=== PATIENT | female | born 1950 | race Caucasian/White ===

== ENCOUNTER 2022-04-15 14:51 | Outpatient (CLI) | payer MEDICARE, OTHER, SELFPAY | END 2022-04-15 14:52 | disposition home or self-care (01) | PROVIDERS: PCP Family Medicine; Visit Provider Family Medicine | DX: M17.12 Unilateral primary osteoarthritis, left knee (principal); M25.562 Pain in left knee | CPT/HCPCS: 64454 ==

== ENCOUNTER 2022-05-13 12:30 | Outpatient (CLI) | payer MEDICARE, OTHER, SELFPAY | END 2022-05-13 12:31 | disposition home or self-care (01) | LOC: INJ CL 12:30 | PROVIDERS: PCP Family Medicine; Visit Provider Family Medicine | DX: M17.12 Unilateral primary osteoarthritis, left knee (principal); G89.29 Other chronic pain; M25.562 Pain in left knee | CPT/HCPCS: 64624; J2250; J3010 ==

== ENCOUNTER 2022-06-06 11:21 | Outpatient (CLI) | payer MEDICARE, OTHER, SELFPAY | END 2022-06-06 11:22 | disposition home or self-care (01) | PROVIDERS: PCP Family Medicine; Visit Provider Family Medicine | DX: M17.11 Unilateral primary osteoarthritis, right knee (principal); M25.561 Pain in right knee | CPT/HCPCS: 64454; J0702; J1100 ==

== ENCOUNTER 2022-06-17 13:16 | Outpatient (CLI) | payer MEDICARE, OTHER, SELFPAY | END 2022-06-17 13:17 | disposition home or self-care (01) | LOC: INJ CL 13:17 | PROVIDERS: PCP Family Medicine; Visit Provider Family Medicine | DX: M17.11 Unilateral primary osteoarthritis, right knee (principal); G89.29 Other chronic pain; M25.561 Pain in right knee | CPT/HCPCS: 20610; 64624; 77002; J2250; J3010; Q9966 ==

== ENCOUNTER 2023-01-05 14:20 | Outpatient (RCR) | payer MEDICARE, OTHER, SELFPAY ==
--- NOTE | 2023-01-05 17:02 | PT.OPEX ---
PT [place] Outpatient Eval PT [facility] Outpatient Eval Start: 01/05/23 13:41 Freq: Status: Active Protocol: Document 01/05/23 13:45 AMS (Rec: 01/05/23 16:58 AMS [id number]) E-signed By Marilin Myles PT Physical Therapy Outpatient Evaluation Insurance Information Recert Due Date 03/31/23 Insurance Name Medicare B Medical Diagnosis Left knee osteoarthritis, pre- op left TKA scheduled for 01/15 Treating Diagnosis Left knee pain Muscle weakness Aftercare following joint replacement Referring MD Dr. Monteiro Subjective Subjective Mariah is a new patient in my office today. She is a pleasant 72yr old female. Presents with pain in both knees. She reports medial pain , left greater than right. She has had symptoms for many years which have been progressive. She wanted to have knee replacement previously but has been treated for breast cancer, including chemotherapy which concluded in May. For knee pain she has tried cortisone injections, Visco injections, radiofrequency ablation, physical therapy, ice, ibuprofen and Tylenol. She has never had surgery on either knee. - Dr. Monteiro, , confirmed by patient Mariah reports to physical therapy for pre-op TKA appointment and use of single- point cane. She will be having the left knee replaced on and doing her post-op physical therapy closer to home in [place]. Lives in a single-story home with three stairs to enter by herself, but her son will be staying with her for 2 nights following the surgery. She will likely be having the right knee replaced after the left at some point. Does not own a FWW, but is able to get one. Reports pain with walking longer than half a block and none at rest. Reports that her cancer is remission, had follow up appointment in October. Pain Comments 0/10 at rest, 8/10 pain with activities Date of Last Physician Visit 12/10/22 Date of Surgery (If applicable) 01/15/23 Current Work Status Retired Precautions Treatment Precautions/Contraindications History of breast cancer in remission Weight Bearing Status Full Weight Bearing Therapy Limitations/Systems Review Not Limited Objective Other/Pertinent Objective Objective: Knee ROM L 0-2-120 R 0-5-120 Strength: Hip flexors: R 5/5 L 4/5 Knee extensors: R 5/5 L 5/5 Knee flexors: R 5/5 L 5/5 Gait/balance: Ambulates with single point cane in right hand to offload left LE, mildly decreased step length on right/antalgic gait noted Swelling/observation: swelling in bilateral calves/ankles noted (several months present, onset w/ chemotherapy) Assessment Assessment/Impression Patient is a 72 year old female presenting for pre- operative visit prior to left total knee arthroplasty scheduled for 01/15/23. She will be doing her post- operative physical therapy in [place] closer to home. Upon assessment, patient demonstrates decreased knee ROM, decreased proximal hip force output, impaired gait ( uses single-point cane), and antalgic gait pattern. These impairments lead to difficulties with walking longer than half a block, gardening, and performing any weightbearing activities without pain. Patient will be seen post operatively in [place] to reassess impairments that will be addressed with skilled care. Mariah would greatly benefit from skilled PT in order to progress strength, ROM, and ambulation post operatively in order to perform all household and work duties without significant difficulty or discomfort. Primary Functional Limitations walking longer than half a block, standing, sleeping, gardening Plan of Care Rehabilitation Potential Excellent Physical Therapy Goals ?Patient will be independent with HEP. MET ?Patient will verbalize knowledge of stair navigation and proper sequencing, MET ?Patient will have knowledge on home adaptations and use of assistive devices post operatively. MET ?Patient will have knowledge of edema management. MET Coordination/Communication With Referral Source Treatment Plan/Direct Interventions Gait Training,Joint Mobilization,Manual Therapy, Neuromuscular Re-ed,Self-Care/ Home Management,Therapeutic Activities,Therapeutic Exercises Frequency/Duration 1x pre-operatively Patient Will Be Discharged From Therapy Completion of LTG(s) Evaluation Billing Untimed Code Treatment Minutes 15 Complexity Low Certification Information Initial Certification Date 01/05/23 Ending Certification Date 03/31/23 Provider Signature Shows Agreement With POC & Medical Necessity Physician Signature & Date Requested Please Sign/Date Here Physician Comment/Change : Physician NPI Number #
== END 2023-05-05 23:59 | disposition home or self-care (01) ==
PROVIDERS: PCP Family Medicine; Visit Provider Orthopaedic Surgery
DX: M17.12 Unilateral primary osteoarthritis, left knee (principal); Z74.09 Other reduced mobility; Z51.89 Encounter for other specified aftercare
CPT/HCPCS: 97110; 97116; 97161

== ENCOUNTER 2023-01-15 08:13 | Day surgery (SDC) | payer MEDICARE, OTHER, SELFPAY ==
[2023-01-15] VITALS (22 sets, daily range): BP systolic 115–156; BP diastolic 58–98; PULSE 60–76; RESP 12–16; TEMP 35.5–36.6; O2SAT 90–98; BMI 32.9
[2023-01-15] MEDS: ACETAMINOPHEN 500 MG TABLET 1000 MG PO ×3 (08:55→21:57)
[2023-01-15] MEDS: CELECOXIB 200 MG CAPSULE PO (08:55)
[2023-01-15] MEDS: OXYCODONE (CR) 10 MG TAB.ER.12H PO (08:55)
[2023-01-15] MEDS: LACTATED RINGERS 1000 ML 1,000 ML 100 ML IV ×2 (09:12→12:45)
[2023-01-15] MEDS: MIDAZOLAM HCL 1 MG/ML inj IVP (10:36)
[2023-01-15] MEDS: fentaNYL 100 MCG/2 ML inj IVP (10:36)
--- NOTE | 2023-01-15 10:38 | SUR.PREOP ---
TIME?OUT:?1034 PT/RN/MDA?VERIFICATION?OF?SURGICAL?SITE,?PROCEDURE,?AND?CONSENT OBTAINED?PRIOR?TO?INVASIVE?PROCEDURE. all in agreement
[2023-01-15] MEDS: CEFAZOLIN 2 GM INJ IVP (11:17)
[2023-01-15] MEDS: TRANEXAMIC ACID 100 MG/ML INJ 1000 MG IV (11:25)
[2023-01-15] MEDS: methylPREDNISolone acetate 80 MG/ML INJ INTRA-ARTI (11:29)
[2023-01-15] MEDS: BUPIVACAINE 0.25% 30 ML INJECTION (11:29)
--- NOTE | 2023-01-15 11:52 | P.NB_ITS ---
Nerve Block Nerve Block Time Seen by Provider: 10:40 Date Seen: 01/15/23 Type of block requested by surgeon for post-operative analgesia: geniculars Side: left Time out performed: Yes Verification of patient name: Yes Verification of date of : Yes Site marking: site marked Name of person performing procedure: Elias Continuous monitoring Was continuous monitoring of O2 sat, B/P, monitor and storage bin tender, recorded every 15 minutes?: Yes Procedure Checklist: sterile prep, needles and gloves Medications given in 5ml increments after negative aspiration: Ropivicaine %: 0.5 mL: 9 Needle gauge: 25 Patient tolerated procedure well: Yes Block Charges Block Charge (with Pro Fee): Genicular Nerve Block Use of Ultrasound Machine for Block: No
--- NOTE | 2023-01-15 11:52 | W.PM.NB ---
Nerve Block Nerve Block Time Seen by Provider: 10:40 Date Seen: 01/15/23 Type of block requested by surgeon for post-operative analgesia: adductor canal Side: left Time out performed: Yes Verification of patient name: Yes Verification of date of : Yes Site marking: site marked Name of person performing procedure: Elias Continuous monitoring Was continuous monitoring of O2 sat, B/P, cardiac rehabilitation specialist, recorded every 15 minutes?: Yes Procedure Checklist: sterile prep, needles and gloves Ultrasound guided. Images saved: Yes Medications given in 5ml increments after negative aspiration: Ropivicaine %: 0.5 mL: 20 Needle gauge: 20 Decadron (mg): 10 Precedex (mcg): 25 Patient tolerated procedure well: Yes Additional comments: Needle noted adjacent to nerve Block Charges Block Charge (with Pro Fee): Femoral Nerve Use of Ultrasound Machine for Block: Yes- US Guidance/pain block
--- NOTE | 2023-01-15 11:52 | W.ANESCHARGE ---
Anesthesia Charges Start Date/Time Anesthesia Start Date: 01/15/23 Anesthesia Start Time: 11:17 Stop Date/Time Anesthesia Stop Date: 01/15/23 Anesthesia Stop Time: 13:43 Summary Extremes of Age - Over 70 or under 1: MDA
--- NOTE | 2023-01-15 12:38 | CRLHL7_ITS ---
For Patients: As a result of the Cures Act, medical imaging exams and procedure reports are released immediately into your electronic medical record. You may view this report before your referring provider. If you have questions, please contact your health care provider. Indication: POSTOP TKA Technique: Two views left knee Findings/Impression: Hardware from a left total knee arthroplasty is in satisfactory position. Bone alignment is normal. No sign of acute fracture. Postop changes are within normal limits. Dictated by Luis Alfredo Camacho MD @ 01/15/2023 3:34:49 PM (Electronically Signed)
--- NOTE | 2023-01-15 12:39 | PM.ORPRC ---
Procedure Note Date of procedure: 01/15/23 Procedure: PREOPERATIVE DIAGNOSIS: Left knee osteoarthritis POSTOPERATIVE DIAGNOSIS: Left knee osteoarthritis NAME OF OPERATION: Left total knee arthroplasty SURGEON: Collin Monteiro MD ROAD MACHINERY INSPECTOR: Geovanna Jamil PA-C ANESTHESIA: Spinal ESTIMATED BLOOD LOSS: 0 mL COMPLICATIONS: None SPECIMENS: None DRAINS: None PREOPERATIVE ANTIBIOTICS: Ancef 2 grams IMPLANTS: 1. J&J Attune # 4 posterior stabilized femur 2. # 3 fixed-bearing tibia 3. # 4 posterior stabilized, 5 mm fixed-bearing polyethylene 4. 35 patella INDICATIONS: The patient is a 72-year-old with a longstanding history of severe, unrelenting left knee pain secondary to end-stage (grade IV) left knee osteoarthritis. Despite appropriate nonoperative management, including activity modification, anti-inflammatories, [id number] pain medication, bracing, physical therapy, and injections they continue to have pain and disability. Operative intervention was offered. The risks, benefits and expected outcomes were discussed in detail. These included but were not limited to: Infection, bleeding, injury to blood vessel or nerve, venous thromboembolism. All questions were answered to their satisfaction. Use of an public services assistant was necessary throughout the case for patient positioning and safety, soft tissue retraction, and closure. PROCEDURE: Spinal anesthesia was administered. The patient was placed supine on the operating table. The public services assistant made sure the patient was positioned appropriately. The lower extremity was prepped and draped in the usual sterile fashion. The limb was exsanguinated with the Leandro bandage. The pneumatic tourniquet was inflated to 300 mmHg. A standard anterior incision was made with the knee in flexion. Subcutaneous dissection was sharply taken through fascial layer #1. Full-thickness medial and lateral flaps were elevated. The public services assistant retracted the soft tissues and protected them throughout the case. A standard medial parapatellar approach was made. The patella was everted. The infrapatellar fat pad was preserved. The menisci and cruciate ligaments were sharply d?brided. Marginal osteophytes were d?brided with the rongeur. The drill was used to penetrate the femoral canal. The canal was aspirated and irrigated with pulse lavage. The intramedullary femoral guide was placed for a 5-degree valgus cut, removing 10 mm off the distal femur. The saw was used to make the cut. Whitesides line and the trans epicondylar axis were marked. The femoral sizing guide was pinned onto the distal femur. Three degrees of external rotation nicely parallels the transepicondylar axis. Pins were placed for posterior referencing. The four-in-one cutting guide was pinned onto the distal femur. The anterior, posterior, and chamfer cuts were made. The public services assistant protected the collateral ligaments. The box cutting guide was pinned. The box cuts were made. The boxed trial was placed and was an excellent fit. Drill holes for the lugs were made. Attention was then turned to the proximal tibia. The extramedullary tibial guide was placed for a neutral varus/valgus cut with 5 degrees of posterior slope, removing 2 mm based off the medial tibial surface. The public services assistant protected the collateral ligaments and the neurovascular bundle. The saw was used to make the cut. Trial components were placed. The knee was nicely balanced in both flexion and extension. The trial components were removed. The tray was placed in appropriate rotation, parallel to our tibial cutting pins. It was pinned by the public services assistant and the drill and the punch were used. The tray was removed. The punch was used again. We placed a bone plug in the femoral canal. Attention was then turned to the patella. Jamul patellar thickness was 20 mm. The lobster claw resection guide was used with the 7.5 mm micah with the saw blade as an extra micah. The saw was used to make the cut. Drill holes were made by the public services assistant. The trial was placed and was an excellent fit. Cancellous surfaces were irrigated with pulse lavage and thoroughly dried by the public services assistant. We cemented the tibial component, then the femoral component. We impacted the 5 mm polyethylene onto the tibial tray. The knee was brought into full extension. We then cemented the patellar component. Excessive cement was removed. The cement was allowed to harden. The knee was taken through a range of motion and was found to be nicely balanced in both flexion and extension. The patella tracks centrally. The public services assistant did a three minute dilute Betadine solution soak. The public services assistant irrigated the wound with 3 liters of normal saline via pulse lavage. The public services assistant reapproximated the extensor mechanism with #1 Vicryl in an interrupted kqoxqq-kh-kquga fashion. The public services assistant then ran the extensor mechanism with a #1 PDO Stratafix. The public services assistant closed the subcutaneous tissues with a 3-0 Stratafix and the skin with a running 3-0 Stratafix in a subcuticular fashion. Glue was used to seal the skin. The public services assistant placed a dry dressing, BORIS stocking, and Polar Care. Sponge and needle counts were correct x2. The patient tolerated the procedure well. There were no apparent complications. They were carefully transferred to the hospital bed and taken to the postanesthesia care unit in satisfactory condition. PLAN: The patient will be mobilized with physical therapy. Aspirin will be used for DVT prophylaxis. They will be discharged to home once medically appropriate.
--- NOTE | 2023-01-15 13:43 | W.ANESCHARGE ---
Anesthesia Charges Start Date/Time Anesthesia Start Date: 01/15/23 Anesthesia Start Time: 11:17 Stop Date/Time Anesthesia Stop Date: 01/15/23 Anesthesia Stop Time: 13:43
--- NOTE | 2023-01-15 14:29 | SUR.PHASEI ---
patient met discharge criteria per anesthesia
[2023-01-15] MEDS: LACTATED RINGERS 1000 ML 1,000 ML 75 ML IV (14:41)
--- NOTE | 2023-01-15 15:59 | P.IMCN_ITS ---
Date of Consult Patient: Allison Patient Consult date: 01/15/23 Requesting Physician: Orthopedics Primary Care Provider: To Gibson MD Consult Narrative Reason for consult: Assist with medical management postoperatively Narrative: Mariah Julien is a 72 year old woman who underwent an elective left total knee arthroplasty today due to severe, symptomatic left gonarthrosis. Surgery successful without any apparent complications. Review of Systems Status of ROS: Reports: 6 or more systems reviewed and unremarkable except as noted in History and below Narrative: Denies angina, anginal equivalent, syncope, near syncope, cough, dyspnea at r est, paroxysmal nocturnal dyspnea, orthopnea, palpitations, fluttering, edema, claudication. Denies nausea or vomiting. Pain is well controlled at this time status post elective left total knee arthroplasty. Interested in eating. Tolerating Cornelius crackers at this time and clear liquids. Preoperatively bowel and bladder function are satisfactory. Does take oxybutynin for bladder function. Few months ago started cyanocobalamin and her hemoglobin has been steadily rising since then. [facility] Medical History (Updated 01/15/23 @ 16:12 by Baudilio Cid MD) Vitamin B12 deficiency anemia ?D51.9 - Vitamin B12 deficiency anemia, unspecified (ICD-10) Overactive bladder ?N32.81 - Overactive bladder (ICD-10) Hyperlipidemia ?E78.5 - Hyperlipidemia, unspecified (ICD-10) Major depressive disorder ?F32.9 - Major depressive disorder, single episode, unspecified (ICD-10) Peripheral neuropathy due to chemotherapy ?G62.0 - Drug-induced polyneuropathy (ICD-10) ?T45.1X5A - Adverse effect of antineoplastic and immunosuppressive drugs, initial encounter (ICD-10) History of pancytopenia ?Z86.2 - Personal history of diseases of the blood and blood-forming organs and certain disorders involving the immune mechanism (ICD-10) Hyperplastic colon polyp ?K63.5 - Polyp of colon (ICD-10) History of adenomatous polyp of colon ?Z86.010 - Personal history of colonic polyps (ICD-10) Breast cancer ?C50.919 - Malignant neoplasm of unspecified site of unspecified female breast (ICD-10) Surgical History (Updated 01/15/23 @ 16:10 by Baudilio Cid MD) Status post tonsillectomy ?Z90.89 - Acquired absence of other organs (ICD-10) History of colonoscopy ?Z98.890 - Other specified postprocedural states (ICD-10) History of lumpectomy of right breast (~03/2021) ?Z98.890 - Other specified postprocedural states (ICD-10) H/O hernia repair ?Z98.890 - Other specified postprocedural states (ICD-10) ?Z87.19 - Personal history of other diseases of the digestive system (ICD-10) Family History Sister Breast cancer Father Myocardial infarction Social History (Updated 01/15/23 @ 15:58 by Baudilio Cid MD) Narrative: Lives alone. 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 Never smoked. Was exposed to secondhand smoke from her ex-. Might drink 1 alcoholic beverage per week at the very most. Has 1 son, Royn, who lives in [place], [place], and home she designates as her power of mergers and acquisitions attorney for health should that be required. Has 1 granddaughter from her son, which granddaughter will be 2 years old in March of 2023. Enjoys spending time with her granddaughter. What is your current living situation?: I presently have a place to live In the past 12 months, utilities in danger of being shut off: no In the past 12 mos, have been you worried that your food would run out before you had money to buy more?: never true In the past 12 mos, the food you bought just didn't last and you didn't have money to buy more?: never true Smoking Status: Never smoker Do you use any of these nicotine containing products: None Second hand tobacco smoke exposure: No How often do you have a drink containing alcohol: 2-4 times a month Alcohol type: hard liquor How many standard drinks containing alcohol do you have on a typical day: 1 or 2 How often do you have six or more drinks on one occasion: Never AUDIT-C Alcohol total score: 2 Non-prescribed substance use: denies use Caffeine: Yes Are you now , , , , never or living with a partner: Social isolation score (0-1 are the most socially isolated patients): 0 How often does anyone, including family, friends and others, physically hurt you : never How often does anyone, including family, friends and others, insult or talk down to you: never How often does anyone, including family, friends and others, threaten you with harm: never How often does anyone, including family, friends and others, scream or curse at you: never service: No Meds Home Medications and Allergies Home Medications Medication Instructions Recorded Confirmed Type cyanocobalamin (vitamin B-12) 1,000 mcg PO DAILY 12/10/22 01/13/23 History 1,000 mcg tablet escitalopram oxalate 10 mg tablet 10 mg PO DAILY 12/10/22 01/15/23 History meloxicam 15 mg tablet 15 mg PO DAILY 12/10/22 01/15/23 History oxybutynin chloride 10 mg 10 mg PO DAILY 12/10/22 01/15/23 History tablet,extended release 24 hr simvastatin 40 mg tablet 40 mg PO HS 12/10/22 01/15/23 History aspirin 81 mg capsule 81 mg PO DAILY 01/15/23 01/15/23 History cholecalciferol (vitamin D3) 10 10 mcg PO DAILY 01/15/23 01/15/23 History mcg (400 unit) capsule multivitamin (Daily Multi-Vitamin 1 tab PO DAILY 01/15/23 01/15/23 History tablet) Allergies Allergy/AdvReac Type Severity Reaction Status Date / Time lisinopril AdvReac congestion Verified 12/10/22 09:23 in throat Exam Narrative: Exam Narrative: Examine her in her hospital room. Appears comfortable and in no acute distress. Vision and hearing are grossly normal. Alert, oriented to self, place, time, situation. Friendly, cooperative. Mood and affect are congruent. Cranial nerves 3-12 grossly normal. Dentition in good repair. Moist buccal mucosa. Mallampati class 2 airway. Neck is supple. Midline trachea. No JVD or hepatojugular reflux. No head and neck lymphadenopathy. Lungs are clear to auscultation without wheezing, rhonchi, or rales. Heart tones with regular rhythm, normal S1-S2. No obvious murmur, gallop, or rub. Abdomen with active bowel sounds, soft, nontender. Still numb in left lower extremity. Const: Vital Signs, click to edit/add: Vital Signs - 24 hr 01/15/23 09:12 01/15/23 10:34 01/15/23 10:43 Temperature 97.8 F Pulse Rate 76 75 72 Pulse Rate [Right Pulse Oximeter] Respiratory Rate 16 16 16 Blood Pressure 129/65 138/67 133/58 L Blood Pressure [Le ft Arm] Pulse Oximetry 97 95 94 Oxygen Delivery Me thod Room Air Nasal Cannula Nasal Cannula Oxygen Flow Rate 2 2 01/15/23 13:39 01/15/23 13:45 01/15/23 13:50 Temperature 97.3 F L 97.8 F 97.8 F Pulse Rate 71 74 71 Pulse Rate [Right Pulse Oximeter] Respiratory Rate 12 16 15 Blood Pressure 122/74 119/90 H 115/78 Blood Pressure [Le ft Arm] Pulse Oximetry 91 93 90 Oxygen Delivery Me thod Room Air Room Air Room Air Oxygen Flow Rate 01/15/23 13:55 01/15/23 14:00 01/15/23 14:05 Temperature 97.8 F 97.8 F 97.2 F L Pulse Rate 70 68 66 Pulse Rate [Right Pulse Oximeter] Respiratory Rate 14 14 15 Blood Pressure 117/72 122/81 119/77 Blood Pressure [Le ft Arm] Pulse Oximetry 92 92 93 Oxygen Delivery Me thod Room Air Nasal Cannula Nasal Cannula Oxygen Flow Rate 2 01/15/23 14:10 01/15/23 14:15 01/15/23 14:25 Temperature 97.2 F L 97.2 F L Pulse Rate 60 62 63 Pulse Rate [Right Pulse Oximeter] Respiratory Rate 14 15 16 Blood Pressure 124/77 125/75 Blood Pressure [Le ft Arm] 140/79 H Pulse Oximetry 96 94 Oxygen Delivery Me thod Nasal Cannula Room Air Oxygen Flow Rate 2 0 01/15/23 14:30 01/15/23 14:45 01/15/23 15:00 Temperature 95.9 F L Pulse Rate Pulse Rate [Right Pulse Oximeter] 68 61 69 Respiratory Rate 16 16 16 Blood Pressure Blood Pressure [Le ft Arm] 144/81 H 121/98 H 127/81 Pulse Oximetry 95 94 97 Oxygen Delivery Me thod Room Air Room Air Room Air Oxygen Flow Rate 01/15/23 15:00 01/15/23 15:36 Temperature 96.9 F L Pulse Rate Pulse Rate [Right Pulse Oximeter] 60 Respiratory Rate 16 Blood Pressure Blood Pressure [Le ft Arm] 129/73 Pulse Oximetry 98 98 Oxygen Delivery Me thod Room Air Oxygen Flow Rate Documenting provider has reviewed patient's vital signs: yes Assessment and Plan Assessment and plan (1) Osteoarthritis of left knee: Status: Acute (2) Status post total left knee replacement: Status: Acute (3) Vitamin B12 deficiency anemia: Problem comment: 11.5 on 01/02/2023 Status: Acute (4) Overactive bladder: Status: Acute (5) Hyperlipidemia: Status: Acute Plan 1. Reviewed impression with patient and her son, Rony. Answered their questions. 2. Hospitalist team will follow along with Orthopedic surgery while patient is in the hospital. 3. Agree with perioperative antibiotic prophylaxis. 4. Agree with postoperative venous thromboembolism prophylaxis. 5. Continue with her usual medications for her vitamin B12 deficiency anemia and overactive bladder. Similarly with regard to her hyperlipidemia. 6. Completed hospitalist discharge portion of patient discharge orders from the hospital.
[2023-01-15] MEDS: CEFAZOLIN 2 GM in 0.9 % SODIUM CHLORIDE Mini-bag 100 ML IVPB (17:39)
[2023-01-15] MEDS: OXYCODONE 5 MG TABLET PO (19:43)
[2023-01-15] MEDS: ASPIRIN 81 MG TABLET EC PO (21:56)
[2023-01-15] MEDS: SIMVASTATIN 40 MG TABLET PO (21:57)
--- NOTE | 2023-01-15 22:50 | PC.NURSE ---
End of Shift: Patient pleasant and cooperative. Afebrile. Dressing to left knee C/D/I. CMS intact. Up to BSC with 2 assist, walker and gait belt. Left leg occasionally buckling when ambulating. Tolerating regular diet with no nausea. Rating pain up to 2/10 and PRN Oxycodone given x1.
[2023-01-16 00:05] VITALS: BP 103/87; PULSE 83; RESP 16; TEMP 36.6; O2SAT 92
[2023-01-16] MEDS: CEFAZOLIN 2 GM in 0.9 % SODIUM CHLORIDE Mini-bag 100 ML IVPB (01:41)
[2023-01-16] MEDS: ACETAMINOPHEN 500 MG TABLET 1000 MG PO ×2 (03:18→10:33)
[2023-01-16 03:20] VITALS: BP 131/81; PULSE 72; RESP 16; TEMP 36.6; O2SAT 98
[2023-01-16 06:42] LABS: Hematocrit 32.4 % (33.0-51.0); Hemoglobin* 10.7 gm/dL (12.0-16.0); Immature Granulocytes Pct Auto 0.3 %; Mean Corpuscular HGB Conc 33 gm/dL (32-36); Mean Corpuscular Hemoglobin 30 pg (26-34); Mean Corpuscular Volume 91 fL (80-100); Monocytes Percent Auto 2.8 % (0.0-11.0); Neutrophils Percent Auto 89.9 % (42.0-72.0); Platelet Count* 265 K/uL (140-440); RDW Coefficient of Variation % 12.8 % (11.5-15.5); Red Blood Count 3.55 m/uL (4.00-5.20); Slide Review Reflex No; White Blood Count* 11.15 K/uL (4.50-11.00)
[2023-01-16 07:02] LABS: Potassium* 3.5 mmol/L (3.6-5.1); Sodium* 140 mmol/L (135-149)
[2023-01-16 07:05] LABS: Creatinine* 0.9 mg/dL (0.5-1.5); Est. Creatinine Clearance* 37.24; Estimated Glomerular Filt Rate 67 ml/min
[2023-01-16 07:06] LABS: Blood Urea Nitrogen* 30 mg/dL (7-30)
[2023-01-16 07:08] LABS: Prothrombin Time 14.9 Seconds
--- NOTE | 2023-01-16 07:59 | PC.NURSE ---
Pt alert and oriented x3. Afebrile. Pt reports 0-2/10 pain in left knee, managed with scheduled medication. Pt's dressing was CDI. Quantitative Associate noted left knee buckels when attempting to stand or walk, reported this to on coming nurse, pt has physical and occupational therapy is ordered in the morning. Pt is heavy A2 with walker and gait belt. Pt is voiding, tolerating regular diet, and slept throughout most of night.
[2023-01-16 08:03] VITALS: BP 144/112; PULSE 70; RESP 16; TEMP 36.4; O2SAT 96
[2023-01-16] MEDS: SENNOSIDES 1 TAB TABLET 2 TAB PO (08:56)
[2023-01-16] MEDS: oxyBUTYnin chloride 5 MG TAB.ER.24 10 MG PO (08:57)
[2023-01-16] MEDS: ESCITALOPRAM 10 MG TABLET PO (08:57)
[2023-01-16] MEDS: ASPIRIN 81 MG TABLET EC PO (08:57)
[2023-01-16] MEDS: CYANOCOBALAMIN (VITAMIN B-12) 500 MCG TABLET 1000 MCG PO (08:57)
--- NOTE | 2023-01-16 09:10 | PM.ORPN ---
Subjective Subjective Time Seen by Provider: 07:15 Date Seen: 01/16/23 Principal diagnosis: Status post left knee replacement 01/15/2023 Interval history: Mariah has no pain. She states her knee has been buckling when she gets up to the commode. She last got out of bed at 5:30 a.m. this morning. Ortho Exam Narrative Exam Narrative: Alert and oriented x3. Patient is in no acute distress. Converses without labored breathing. Hearing is grossly intact. Ambulates with a walker and has had buckling of the operative leg. Examination of the left lower extremity shows minimal effusion. Minimal soft tissue edema about the left knee. CMS is intact. No foot drop. Good pedal pulses 2+. Easily able to straight leg raise. Can flex and extend the knee in the bed. Also with testing quad strength, her quads activate, easily able to push her knee into the bed with clenching her quad. No erythema or sign of infection in this knee. Bilateral calves are soft and nontender. Const Vital Signs, click to edit/add: Vital Signs - 24 hr 01/15/23 09:12 01/15/23 10:34 01/15/23 10:43 Temperature 97.8 F Pulse Rate 76 75 72 Pulse Rate [Left Dorsalis Pedis] Pulse Rate [Right Pulse Oximeter] Respiratory Rate 16 16 16 Blood Pressure 129/65 138/67 133/58 L Blood Pressure [Left Arm] Pulse Oximetry 97 95 94 Oxygen Delivery Method Room Air Nasal Cannula Nasal Cannula Oxygen Flow Rate 2 2 01/15/23 13:39 01/15/23 13:45 01/15/23 13:50 Temperature 97.3 F L 97.8 F 97.8 F Pulse Rate 71 74 71 Pulse Rate [Left Dorsalis Pedis] Pulse Rate [Right Pulse Oximeter] Respiratory Rate 12 16 15 Blood Pressure 122/74 119/90 H 115/78 Blood Pressure [Left Arm] Pulse Oximetry 91 93 90 Oxygen Delivery Method Room Air Room Air Room Air Oxygen Flow Rate 01/15/23 13:55 01/15/23 14:00 01/15/23 14:05 Temperature 97.8 F 97.8 F 97.2 F L Pulse Rate 70 68 66 Pulse Rate [Left Dorsalis Pedis] Pulse Rate [Right Pulse Oximeter] Respiratory Rate 14 14 15 Blood Pressure 117/72 122/81 119/77 Blood Pressure [Left Arm] Pulse Oximetry 92 92 93 Oxygen Delivery Method Room Air Nasal Cannula Nasal Cannula Oxygen Flow Rate 2 01/15/23 14:10 01/15/23 14:15 01/15/23 14:25 Temperature 97.2 F L 97.2 F L Pulse Rate 60 62 63 Pulse Rate [Left Dorsalis Pedis] Pulse Rate [Right Pulse Oximeter] Respiratory Rate 14 15 16 Blood Pressure 124/77 125/75 Blood Pressure [Left Arm] 140/79 H Pulse Oximetry 96 94 Oxygen Delivery Method Nasal Cannula Room Air Oxygen Flow Rate 2 0 01/15/23 14:30 01/15/23 14:45 01/15/23 15:00 Temperature 95.9 F L Pulse Rate Pulse Rate [Left Dorsalis Pedis] Pulse Rate [Right Pulse Oximeter] 68 61 69 Respiratory Rate 16 16 16 Blood Pressure Blood Pressure [Left Arm] 144/81 H 121/98 H 127/81 Pulse Oximetry 95 94 97 Oxygen Delivery Method Room Air Room Air Room Air Oxygen Flow Rate 01/15/23 15:00 01/15/23 15:15 01/15/23 15:45 Temperature 96.9 F L Pulse Rate Pulse Rate [Left Dorsalis Pedis] Pulse Rate [Right Pulse Oximeter] 60 64 Respiratory Rate 16 16 Blood Pressure Blood Pressure [Left Arm] 129/73 126/80 Pulse Oximetry 98 98 95 Oxygen Delivery Method Room Air Room Air Oxygen Flow Rate 0 01/15/23 16:15 01/15/23 17:15 01/15/23 18:15 Temperature 96.6 F L Pulse Rate Pulse Rate [Left Dorsalis Pedis] Pulse Rate [Right Pulse Oximeter] 66 66 70 Respiratory Rate 16 16 16 Blood Pressure Blood Pressure [Left Arm] 156/81 H 142/74 H 145/75 H Pulse Oximetry 95 96 95 Oxygen Delivery Method Room Air Room Air Room Air Oxygen Flow Rate 0 0 0 01/15/23 19:15 01/15/23 20:15 01/16/23 00:05 Temperature 97.6 F Pulse Rate Pulse Rate [Left Dorsalis Pedis] Pulse Rate [Right Pulse Oximeter] 71 72 Respiratory Rate 16 16 Blood Pressure Blood Pressure [Left Arm] 137/70 143/70 H Pulse Oximetry 94 94 92 Oxygen Delivery Method Room Air Room Air Oxygen Flow Rate 0 0 01/16/23 00:05 01/16/23 00:05 01/16/23 03:20 Temperature 97.8 F 97.9 F Pulse Rate Pulse Rate [Left Dorsalis Pedis] 83 72 Pulse Rate [Right Pulse Oximeter] 83 72 Respiratory Rate 16 16 16 Blood Pressure Blood Pressure [Left Arm] 103/87 131/81 Pulse Oximetry 92 98 Oxygen Delivery Method Room Air Room Air Oxygen Flow Rate 0 01/16/23 08:03 Temperature 97.6 F Pulse Rate Pulse Rate [Left Dorsalis Pedis] Pulse Rate [Right Pulse Oximeter] 70 Respiratory Rate 16 Blood Pressure Blood Pressure [Left Arm] 144/112 H Pulse Oximetry 96 Oxygen Delivery Method Room Air Oxygen Flow Rate Assessment and Plan Assessment and plan (1) Status post total left knee replacement: Problem details: 01/15/2023 Status: Acute Assessment and Plan: I have spoken with physical therapy this morning to discuss Mariah's symptoms. We discussed that she may need a knee immobilizer for therapy. She may need to stay for 2nd physical therapy session today before she can go home. Physical therapy will assess her. Physical exam of the left lower extremity in her bed shows quad activation, no foot drop. Plan for discharge is today to home if they meet discharge criteria. DVT prophylaxis includes aspirin 81 mg twice daily x1 month, Jacob stockings x1 month may remove for 1 hr per day, frequent ambulation Remove dressing in 1 week. Observe wound and phone Orthopedics with any questions or concerns Return to clinic in 1 week for a wound check Return to clinic in 6 weeks with surgeon Minimize narcotic use. Wean off and discontinue soon as possible. Activities as tolerated. No strenuous activity. Outpatient physical therapy as scheduled. Ice and elevate the operative extremity. No restriction on ice. (2) Vitamin B12 deficiency anemia: Problem details: 11.5 on 01/02/2023 Status: Acute (3) Overactive bladder: Status: Acute (4) Hyperlipidemia: Status: Acute
[2023-01-16 09:35] VITALS: O2SAT 96
--- NOTE | 2023-01-16 14:17 | PC.NURSE ---
Discharge note- post LTKA- dressing is CDI, Ax1 w/ gait belt and RW. Son at bedside during discharge teaching. Discharged @1420 via wheelchair. All discharge instructions were reviewed. Follow up appoinment is booked.
== END 2023-01-16 14:20 | disposition home or self-care (01) ==
LOC: OR 08:14 → MEDSURG 08:16
PROVIDERS: PCP Family Medicine; Visit Provider Orthopaedic Surgery
PROC: (CPT 27447; principal; 2023-01-15 10:15)
PROC: (CPT 27447; 2023-01-15 10:15)
DX: M17.12 Unilateral primary osteoarthritis, left knee (principal); G89.18 Other acute postprocedural pain; D51.9 Vitamin B12 deficiency anemia, unspecified; N32.81 Overactive bladder; E78.5 Hyperlipidemia, unspecified
CPT/HCPCS: 27447; 01402; 36415; 64447; 64454; 73560; 76942; 82565; 84132; 84295; 84520; 85025; 85610; 97110; 97116; 97161; 97165; 97530; 97535; 99100; A9270; C1776; J0665; J0690; J1040; J1100; J2250; J2704; J2795; J3010; J7120

== ENCOUNTER 2023-12-08 06:57 | Day surgery (SDC) | payer MEDICARE, OTHER, SELFPAY ==
[2023-12-08] VITALS (24 sets, daily range): BP systolic 98–153; BP diastolic 47–103; PULSE 69–91; RESP 12–18; TEMP 36–36.8; O2SAT 92–98; BMI 34.9
--- OUTSIDE RECORDS SUMMARY | 2023-12-08 06:59 | XMS_ITS | Clinical Summary ---
Author Organization [email or web address] [facility] Address [place], [place] [address] Care Team Providers Care Boom Worker Name Role Phone To Gibson MD Primary Care Provider [phone] Kash Funk RN Unavailable Unavailable Yokasta Staley MD Unavailable [phone] Zulema Correia MANAGER ANIMATION Unavailable Allergies Active Allergy Reactions Criticality Noted Date Comments Lisinopril-Hydrochlorothiazide Cough Low 07/27 Clearing throat Medications Medication Sig Dispensed Refills Start Date End Date Status multivitamin (Daily Multi-Vitamin) tablet Take 1 Tablet by mouth once daily. 0 08/14/2022 Active Cholecalciferol, Vitamin D3, (Vitamin D-3) 400 unit capsule Take by mouth once daily. 0 08/14/2022 Active aspirin chewable 81 mg chewable tablet Chew 1 Tablet (81 mg) by mouth once daily with a meal. 0 01/02/2023 Active Senna 8.6 mg tablet TAKE 2 TABLETS BY MOUTH TWICE DAILY NEEDED FOR CONSTIPATION 01/15/2023 Active acetaminophen (TYLENOL EXTRA STRGTH) 500 mg tablet 01/15/2023 Active cyanocobalamin (VITAMIN B12) 1,000 mcg tabletIndications:An emia, unspecified type TAKE 1 TABLET BY MOUTH DAILY 30 Tablet 5 06/11/2023 Active escitalopram oxalate (LEXAPRO) 10 mg tabletIndications:De pression, major, single episode, moderate (HC) Take 1 Tablet (10 mg) by mouth every morning. 90 Tablet 08/18/2023 Active oxybutynin XL (DITROPAN XL) 10 mg CR tabletIndications:Ov eractive bladder Take 1 Tablet (10 mg) by mouth once daily. 90 Tablet 08/18/2023 Active simvastatin (ZOCOR) 40 mg tabletIndications:Hy perlipidemia, unspecified hyperlipidemia type Take 1 Tablet (40 mg) by mouth at bedtime. 90 Tablet 08/18/2023 Active meloxicam 15 mg tabletIndications:Ch ronic pain of right knee Take 1 Tablet (15 mg) by mouth once daily. 30 Tablet 5 08/18/2023 Active benzonatate (TESSALON) 200 mg capsuleIndications:C ough, unspecified type Take 1 Capsule (200 mg) by mouth 3 times daily if needed for Cough. 21 Capsule 09/24/2023 Active Active Problems Problem Noted Date Diagnosed Date Pancytopenia 07/04/2022 Peripheral neuropathy due to chemotherapy 2022 Depression, major, single episode, moderate 06/18 Arthritis of right knee 04/23/2021 Arthritis of left knee 04/23/2021 Primary osteoarthritis of both knees 01/10/2021 Colon polyp, hyperplastic 06/24/2014 Other and Unspecified Hyperlipidemia 04/20/2008 Personal history of colonic polyps Malignant neoplasm of right breast in female, estrogen receptor negative Cancer Staging:Pathologic:Stage IIA(pT2, pN0, cM0, G3, ER-, CT-, HER2+) - Signed by Yokasta Staley MD on 05/15/2021 Resolved Problems Problem Noted Date Diagnosed Date Resolved Date HTN (hypertension) 07/27/2009 2 HTN (hypertension) 04/20/2008 0 Overview: Updated by system to replace inactive record Encounters Date Type Department Care Team Description 11/24/2023 10:50 AM CDT Office Visit [facility] [address] [place] [address] To Gibson MD Pre-Op Exam (Right knee replacement) 11/24/2023 Travel 10/29/2023 Telephone [facility] [address] [place] [address] Zulema Correia, MANAGER ANIMATION Appointment 10/28/2023 11:15 AM CDT Office Visit [facility] [address] [place] [address] Zulema Correia, MANAGER ANIMATION Follow Up (Malignant neoplasm of right breast in female, estrogen receptor negative, unspecified site of breast (HC)//) 10/28/2023 Travel 10/23/2023 11:12 AM CDT - 10/23/2023 11:59 PM CDT Hospital Encounter [facility] [address] [facility] [place] [address] Anemia, unspecified type; HER2-positive carcinoma of right breast (HC) 10/23/2023 Travel 09/24/2023 12:25 PM CDT Office Visit [facility] [address] [facility] [place] [facility] [place] [address] Shu Bentley, HERMAN Cough (Excessive cough causing rib pain x 4 days. Chest soreness has improved some. Cough is productive) 09/24/2023 Travel 09/22/2023 Telephone [facility] [address] [facility] [place] [address] Zulema Correia, MANAGER ANIMATION Appointment from Last 3 Months Immunizations Name Administration Dates Next Due AMB Influenza, IIV3 (Age >=3 years)(Flu Clinic Only) 04/28/2012,02/20/2009,04/05/2008 COVID-19 Vaccine Spikevax (M oderna 50mcg/0.5mL) 12YO+ [id number] Formula PF 05/07/2023 COVID-19 vaccine ([place]-Bio NTech 30mcg/0.3mL) 12YO+ BIVALENT PF, MDV 04/18/2022 COVID-19 vaccine ([place]-Bio NTech 30mcg/0.3mL) PF, MDV 03/04/2021,08/11/2020,07/21/2020 Influenza, IIV3 (Age >=3 years) 05/06/20 13,03/07/2011,04/26/2010,2006 Influenza, IIV4 05/12/2014 Influenza, Inactivated AIIV4 (Age 65+ Years) Preserv Free 05/07/2023,02/25/2022,03/04/2021,2019 Influenza, Inactivated IIV3 (Age 65+ Years) Preserv Free 05/24/2019 Pneumococcal Poly,23-Valent (Pneumovax) 04/05/2021 Pneumococcal conj 13-Valent (Prevnar 13) 02/08/2020 Td (Age >=7 Years) 11/16/2007 Tdap 03/04/2021 Tuberculin (PPD) 06/24/2016, 4,07/06/2012,2011,07/23/2010,09/17/2009,09/12/2008,0 08/04/2007,08/05/2006 Zoster (Shingrix-RZV, recombinant) 06/04/2020, Family History Medical History Relation Name Comments Heart Disease Father [place] Cancer-breast Sister Relation Name Status Comments Father Sister Social History Tobacco Use Types Packs/Day Years Used Date Smoking Tobacco: Never Passive Smoke Exposure: Yes Smokeless Tobacco: Never Tobacco Cessation:Counseling Given: Not Answered Passive Exposure Comments:ex- smoked in home Alcohol Use Standard Drinks/Week Comments Yes 1 (1 standard drink = 0.6 oz pure alcohol) occasionally wine, beer or liquor PHQ-2 Answer Date Recorded PHQ-2 TOTAL SCORE 0 08/18/2023 Social Connections Answer Date Recorded Frequency of Communication with Friends and Fami ly 0 09/24/2023 Financial Resource Strain Answer Date R ecorded Difficulty of Paying Living Expenses 3 09/24/2023 Difficulty of Paying Living Expenses Not on file 09/24/2023 Food Insecurity Answer Date Recorded Worried About Running Out of Food in the Last Ye ar 1 09/24/2023 Transportation Needs Answer Date Record ed Lack of Transportation (Medical) 1 09/24/2023 Housing Stability Answer Date Recorded Unable to Pay for Housing in the Last Year 1 09/24/2023 Sex and Gender Information Value Date Recorded Sex Assigned at Not on file Gender Identity Not on file Sexual Orientation Not on file Obstetrics History Last Filed Vital Signs Vital Sign Reading Time Taken Comments Blood Pressure 118/68 11/24/2023 11:08 AM CDT Pulse 86 11/24/2023 11:08 AM CDT Temperature 37.1 ??C (98.7 ??F) 10/28/2023 1 1:07 AM CDT Respiratory Rate 18 10/28/2023 11:0 7 AM CDT Oxygen Saturation 97% 11/24/2023 11: 08 AM CDT Inhaled Oxygen Concentration - - Weight 83.8 kg (184 lb 11.2 oz) 024 11:08 AM CDT Height 154.9 cm (5' 1) 11/24/2023 11:0 8 AM CDT Body Mass Index 34.9 11/24/2023 11:08 AM CDT Plan of Treatment Upcoming Encounters Date Type Department Care Team (Late st Contact Info) Description 04/07/2024 11:20 AM TITLE CAMERA OPERATOR Appointment [facility] [address] [place] [address] 04/13/2024 11:15 AM TITLE CAMERA OPERATOR Appointment [facility] [address] [place] [address] 04/18/2024 11:30 AM TITLE CAMERA OPERATOR Office Visit [facility] [address] [place] [address] Yokasta Staley MD [address] [place] [address] Health Maintenance Due Date Last Done Comments COVID-19 vaccine series ( season) 2023 05/07/2023, 04/18/2022, 03/04/2021, Additional history exists Influenza for age 65+ 01/17/2024 05/07/2023 , 02/25/2022, 03/04/2021, Additional history exists Depression screening for age 12+ 08/17/2024 08/18/2023, 09/02/2022, 04/18/2022, Additional history exists Medicare Wellness for age 65+ 08/18/2024, 04/18/2022, 03/04/2021, Additional history exists BMI (ht and wt on same day) for age 18+ 11/23/2024 11/24/2023, 08/18/2023, 01/02/2023, Additional history exists Colonoscopy through age 75 03/25/202603/25, 03/20/2016, 03/20/2016, Additional history exists Lipids for age 45-75 08/17/2028 08/18/2023, 04/18/2022, 03/04/2021, Additional history exists Tetanus booster 03/04/2031 03/04/2021, 11/16/2007 Hepatitis C screening for ag e 18-79 Completed 05/12/2014 DEXA/DXA scan for age 65+ Completed 04/13/2018 Zoster (shingles) series for age 50+ Completed 06/04/2020, 04/05/2020 Tdap Completed 03/04/2021 Pneumococcal series for age 65+ Completed , 02/08/2020 Medical Devices Implanted Type Area Hydraulic Spinner Device Identifier Shelf Expiration Date Model / Serial / Lot Power Port Isp Mri 6fr [id number] - [id number] Implanted:Qty: 1 on 04/30/2021 by Jamie Parrish MD at [facility] Left: Chest [employer] 07/15/2022 [id number] / / [id number] Procedures Procedure Name Priority Date/Time Associated Diagnosis Comments CBC WITH AUTO DIFFERENTIAL Routine 11/24/2023 11:27 AM CDT Preop examination Chronic pain of right knee BASIC METABOLIC PANEL Routine 11/24/2023 11:27 AM CDT Preop examination Chronic pain of right knee CBC WITH AUTO DIFFERENTIAL Routine 11/24/2023 11:27 AM CDT Preop examination Chronic pain of right knee CBC WITH AUTO DIFFERENTIAL Timed 10/23/2023 11:19 AM CDT Anemia, unspecified type HER2-positive carcinoma of right breast (HC) RETICULOCYTES Today 10/23/2023 11:19 AM CDT Anemia, unspecified type HER2-positive carcinoma of right breast (HC) COMP METABOLIC PANEL Today 10/23/2023 11:19 AM CDT Anemia, unspecified type HER2-positive carcinoma of right breast (HC) CBC WITH AUTO DIFFERENTIAL Today 10/23/2023 11:19 AM CDT Anemia, unspecified type HER2-positive carcinoma of right breast (HC) COVID-19 MOLECULAR Routine 09/24/2023 1: 26 PM CDT Cough, unspecified type INFLUENZA A/B PCR Routine 09/24/2023 1:2 6 PM CDT Cough, unspecified type LIPID PANEL W REFLEX MEASURED LDL Routine 08/18/2023 11:43 AM CDT Hyperlipidemia, unspecified hyperlipidemia type COLONOSCOPY 03/25/2021 10:28 AM TITLE CAMERA OPERATOR XR DXA BONE DENSITY 2 SITES AXIAL Routine 04/13/2018 1:02 PM TITLE CAMERA OPERATOR Routine adult health maintenance ANTI HCV Routine 05/12/2014 10:11 AM TITLE CAMERA OPERATOR Well adult exam from Last 3 Months or Most Recently Relevant to Health Maintenance Results * CBC WITH AUTO DIFFERENTIAL (11/24/2023 11:27 AM CDT) Only the most recent of2 resultswithin the time period is included. WHITE BLOOD COUNT 6.9 4.5 - 11.0 thou/cu mm 11/24/2023 12:[address] [facility] RED BLOOD COUNT 4.08 4.00 - 5.20 mil/cu mm 11/24/2023 12:[address] [facility] HEMOGLOBIN 12.3 12.0 - 16.0 g/dL 11/24/2023 12:[address] [facility] HEMATOCRIT 37.3 33.0 - 51.0 % 11/24/2023 12:[address] [facility] MCV 91 80 - 100 fL 11/24/2023 12:[address] [facility] MCH 30.1 26.0 - 34.0 pg 11/24/2023 12:[address] [facility] MCHC 33.0 32.0 - 36.0 g/dL 11/24/2023 12:[address] [facility] RDW 13.4 11.5 - 15.5 % 11/24/2023 12:[address] [facility] PLATELET COUNT 315 140 - 440 thou/cu mm 11/24/2023 12:[address] [facility] MPV 10.0 6.5 - 11.0 fL 11/24/2023 12:[address] [facility] % NEUT 51.6 % 11/24/2023 12:[address] [facility] % LYMPH 34.4 % 11/24/2023 12:[address] [facility] % MONO 9.8 % 11/24/2023 12:[address] [facility] % EOS 3.6 % 11/24/2023 12:[address] [facility] % BASO 0.6 % 11/24/2023 12:[address] [facility] ABSOLUTE NEUTROPHILS 3.6 1.7 - 7.0 thou/cu mm 11/24/2023 12:[address] [facility] ABSOLUTE LYMPHOCYTES 2.4 0.9 - 2.9 thou/cu mm 11/24/2023 12:[address] [facility] ABSOLUTE MONOCYTES 0.7 <0.9 thou/cu mm 11/24/2023 12:[address] [facility] ABSOLUTE EOSINOPHILS 0.3 <0.5 thou/cu mm 11/24/2023 12:[address] [facility] ABSOLUTE BASOPHILS 0.0 <0.3 thou/cu mm 11/24/2023 12:[address] [facility] Blood BLOOD SPECIMEN / Unknown Venipuncture / Unknown 11/24/2023 11:27 AM CDT 11/24/2023 11:28 AM T To Gibson MD HEMATOLOGY [facility] [address] [place] [address] * (ABNORMAL) BASIC METABOLIC PANEL (11/24/2023 11:27 AM CDT) SODIUM 140 136 - 145 mmol/L 11/24/2023 12:[address] [facility] POTASSIUM 3.9 3.5 - 5.1 mmol/L 11/24/2023 12:[address] [facility] CHLORIDE 102 98 - 107 mmol/L 11/24/2023 12:[address] [facility] CO2,TOTAL 29 22 - 29 mmol/L 11/24/2023 12:[address] [facility] ANION GAP 9 5 - 18 11/24/2023 12:[address] [facility] GLUCOSE 105(H) 70 - 99 mg/dL 11/24/2023 12:[address] [facility] CALCIUM 9.6 8.8 - 10.2 mg/dL 11/24/2023 12:[address] [facility] BUN 28(H) 8 - 23 mg/dL 11/24/2023 12:[address] [facility] CREATININE 1.06(H) 0.50 - 0.90 mg/dL 11/24/2023 12:[address] [facility] BUN/CREAT RATIO 26(H) 10 - 20 12:[address] [facility] eGFR 55(L) >90 mL/min/1.7 3m2 11/24/2023 12:[address] [facility] Comment:As of 2021, eG FR is calculated by the CKD-EPI creatinine equation without race adjustment. ??eGFR can be influenced by muscle mass, exercise, and diet. ??The reported eGFR is an estimation only and is only applicable if the renal function is stable. Blood BLOOD SPECIMEN / Unknown Venipuncture / Unknown 11/24/2023 11:27 AM CDT 11/24/2023 11:28 AM CDT To Gibson MD CHEMISTRY [facility] [address] [place] [address] * (ABNORMAL) RETICULOCYTES (10/23/2023 11:19 AM CDT) RETIC% 2.3(H) 0.5 - 1.5 % 10/23/2023 10:00 PM T [facility] RETIC (ABSOLUTE) 0.09(H) 0.03 - 0.08 mil/cu mm 10/23/2023 10:00 PM T [facility] Blood BLOOD SPECIMEN / Unknown Venipuncture / Unknown 10/23/2023 11:19 AM CDT 10/23/2023 11:19 AM CDT Narrative [facility] - 10/23/2023 10:00 PM CDT This procedure was originally ordered at [facility]. Yokasta Staley MD HEMATOLOGY [facility] [address] [place] [address], * (ABNORMAL) COMP METABOLIC PANEL (10/23/2023 11:19 AM CDT) SODIUM 140 136 - 145 mmol/L 10/23/2023 11:[address] [facility] POTASSIUM 4.1 3.5 - 5.1 mmol/L 10/23/2023 11:[address] [facility] CHLORIDE 103 98 - 107 mmol/L 10/23/2023 11:[address] [facility] CO2,TOTAL 26 22 - 29 mmol/L 10/23/2023 11:[address] [facility] ANION GAP 11 5 - 18 10/23/2023 11:[address] [facility] GLUCOSE 103(H) 70 - 99 mg/dL 10/23/2023 11:[address] [facility] CALCIUM 9.6 8.8 - 10.2 mg/dL 10/23/2023 11:[address] [facility] BUN 33(H) 8 - 23 mg/dL 10/23/2023 11:[address] [facility] CREATININE 1.02(H) 0.50 - 0.90 mg/dL 10/23/2023 11:39 AM T [facility] BUN/CREAT RATIO 32(H) 10 - 20 11:[address] [facility] eGFR 57(L) >90 mL/min/1.7 3m2 10/23/2023 11:[address] [facility] Comment:As of 2021, eG FR is calculated by the CKD-EPI creatinine equation without race adjustment. ??eGFR can be influenced by muscle mass, exercise, and diet. ??The reported eGFR is an estimation only and is only applicable if the renal function is stable. ALBUMIN 4.2 4.0 - 4.9 g/dL 10/23/2023 11:[address] [facility] PROTEIN,TOTAL 7.0 6.0 - 8.0 g/dL 10/23/2023 11:[address] [facility] BILIRUBIN,TOTAL 0.5 0.0 - 1.2 mg/dL 10/23/2023 11:[address] [facility] ALK PHOSPHATASE 77 35 - 104 IU/L 10/23/2023 11:[address] [facility] ALT (SGPT) 19 10 - 35 IU/L 10/23/2023 11:[address] [facility] AST (SGOT) 22 10 - 35 IU/L 10/23/2023 11:[address] [facility] Blood BLOOD SPECIMEN / Unknown Venipuncture / Unknown 10/23/2023 11:19 AM CDT 10/23/2023 11:19 AM CDT Yokasta Staley MD CHEMISTRY [facility] [address] [place] [id number] * COVID-19 MOLECULAR (09/24/2023 1:26 PM CDT) [facility] Negative Negative 09/25/2023 1:02 AM CDT [facility] 09/25/2023 1:02 AM CDT [facility] Comment:Specimen submitted t o [facility] for testing. Other SPECIMEN FROM NASAL FOSSAE / Unknown Non-Blood / Unknown 09/24/2023 1:26 PM CDT 09/24/2023 1:26 PM CDT Narrative [facility] - 09/25/2023 1:02 AM CDT All PCR tests are subject to false negative result due to variability in viral load and collection technique. A negative result does not rule out a SARS-CoV-2 infection. Clinical correlation required. Laura العلي NP MICROBIOLOGY [facility] [address] * INFLUENZA A/B PCR (09/24/2023 1:26 PM CDT) INFLUENZA A PCR Negative 09/25/2023 1:02 AM CDT [facility] INFLUENZA B PCR Negative 09/25/2023 1:02 AM CDT [facility] Other SPECIMEN FROM NASAL FOSSAE / Unknown Non-Blood / Unknown 09/24/2023 1:26 PM CDT 09/24/2023 1:26 PM CDT Laura العلي NP MICROBIOLOGY [facility] [address] [place] [address], * (ABNORMAL) LIPID PANEL W REFLEX MEASURED LDL (08/18/2023 11:43 AM CDT) CHOLESTEROL,TOTAL 266(H) 100 - 199 mg/dL 08/18/2023 12:33 PM CDT [facility] Comment: Cholesterol, Total Reference Ranges Desirable <200 mg/dL Borderline 200-239 mg/dL High >=240 mg/dL TRIGLYCERIDES 129 <150 mg/dL 08/18/2023 12:33 PM CDT [facility] HDL CHOLESTEROL 54 >40 mg/dL 12:33 PM CDT [facility] NON-HDL CHOLESTEROL 212(H) <145 mg/dl 08/18/2023 12:33 PM T [facility] CHOL/HDL RATIO 4.93(H) <4.50 08/18/2023 12:33 PM CDT [facility] LDL CHOLESTEROL 186(H) <=130 mg/dL 08/18/2023 12:33 PM T [facility] VLDL CHOLESTEROL 26 <=30 mg/dL 08/18/2023 12:33 PM T [facility] PROVIDER ORDERED STATUS RANDOM 08/18/2023 12:33 PM T [facility] Blood BLOOD SPECIMEN / Unknown Venipuncture / Unknown 08/18/2023 11:43 AM CDT 08/18/2023 11:43 AM CDT To Gibson MD CHEMISTRY Performing Organization Address City/State/[facility] Co de Phone Number [facility] [address] [place] [address] * COLONOSCOPY (03/25/2021 10:28 AM TITLE CAMERA OPERATOR) 03/25/2021 10:2 8 AM TITLE CAMERA OPERATOR Narrative Transcriptions Jamie Parrish MD - 03/25/2021 11:51 AM CST Patient Name: Mariah Sanford Procedure Date: 03/25/2021 Gender: Female Date of : 1950 Admit Type: Ambulatory Procedure: Colonoscopy Proceduralist: Jamie Parrish [facility] Indications/Pre-Op Diagnosis: High risk colon cancer surveillance:Personal history of colonic polyps Medications: Midazolam 4 mg IV, Fentanyl 100 microgramsIV Procedure Description: The patient had risks, benefits and alternatives explained to andgave informed consent. The patient had a stable cardiopulmonary status and judged an adequate candidate for conscious sedation. The colonoscope was passed through the anus and advanced to 4 cm into the ileum. The colonoscopy was performed without difficulty. Thepatient tolerated the procedure well. The quality of the bowel preparationwas good. The terminal ileum, ileocecal valve, appendiceal orifice, and rectum were photographed. Complications: No immediate complications. Estimated Blood Loss & Specimen: Estimated blood loss: none. Specimen collected - None Findings: The perianal and digital rectal examinations were normal. Scattered medium-mouthed diverticula were found in the sigmoidcolon. The terminal ileum appeared normal. The retroflexed view of the distal rectum and anal verge was normaland showed no anal or rectal abnormalities. Impressions/Post-Op Diagnosis: - Diverticulosis in the sigmoid colon. - The examined portion of the ileum was normal. - No specimens collected. Recommendation: - Discharge patient to home. - Resume previous diet. - Continue present medications. - Repeat colonoscopy in 5 years for surveillance. Moderate Sedation: Moderate (conscious) sedation was administered by the endoscopy nurse and supervised by the endoscopist. The patient's oxygen saturation, heart rate, blood pressure and response to care were monitored. Total physician intraservice time was 20 minutes. Jamie Parrish, 03/25/2021 11:51:22 AM This report has been signed electronically. Note Initiated On: 03/25/2021 10:28 AM Jamie Parrish MD PROCEDURE ORD * XR DXA BONE DENSITY 2 SITES AXIAL (04/13/2018 1:02 PM TITLE CAMERA OPERATOR) Anatomical Region Laterality Modality Spine, HIPS, HIPL, HIPR Bone Den sitometry Narrative 04/13/2018 3:25 PM TITLE CAMERA OPERATOR Please see scanned document for results of this study. To Gibson MD DEXA * ANTI HCV (05/12/2014 10:11 AM TITLE CAMERA OPERATOR) HEPATITIS C ANTIBODY Non-Reacti ve Non-Reacti ve 05/12/2014 3:04 PM TITLE CAMERA OPERATOR [facility] Blood specimen (specimen) BLOOD SPECIMEN / Unknown Venipuncture / Unknown 05/12/2014 10:11 AM TITLE CAMERA OPERATOR 05/12/2014 10:11 AM TITLE CAMERA OPERATOR Narrative [facility] - 05/12/2014 3:04 PM TITLE CAMERA OPERATOR Antibodies to HCV not detected; does not exclude the possibility of exposure to HCV. To Gibson MD SEND OUTS [facility] [address] [place] [address], from Last 3 Months or Most Recently Relevant to Health Maintenance Advance Directives Documents on File Type Date Recorded Patient Caramel Maker Expl anation Healthcare Directive 09/28/2018 12:58 PM H EALTHCARE DIRECTIVE, 09/24/2018 * Full Code (Latest Code Status on File) Date Activated Date Inactivated Comments 04/30/2021 8:26 AM 04/30/2021 4:24 PM Question Answer Comments Code Status Discussion: Not Discussed * Full Code Date Activated Date Inactivated Comments 04/10/2021 8:57 AM 04/10/2021 7:16 PM Question Answer Comments Code Status Discussion: Not Discussed * Full Code Date Activated Date Inactivated Comments 03/25/2021 9:34 AM 03/25/2021 2:24 PM Question Answer Comments Code Status Discussion: Per Existing Order Care Teams Boom Worker Relationship Specialty Start Date End Date To Gibson MD [address] [place] [address] PCP - General 10/08/05 Kash Funk, RN [address] [place] [address] Nurse Navigator - Oncology Oncology 03/25/21 Yokasta Staley MD [address] [facility] [address] Oncology Oncology 04/03/21 Zulema Correia NP [address] [facility] [address] Oncology Oncology 04/03/21
--- OUTSIDE RECORDS SUMMARY | 2023-12-08 06:59 | XMS_ITS | Clinical Summary ---
Author Organization [facility] Address [address] [place] [address] Care Team Providers Care Utilities Manager Name Role Phone Needs Pcp, Assignment Primary Care Provider Source Comments You are receiving this document as you are listed as the primary care provider,follow-up provider, or the patient has been referred to you for consultation.This is in compliance with the Medicare and[facility] EHR Incentive Program,which states Providers who transition their patient to another setting of careor provider of care or refers their patient to another provider of care shouldprovide summary care record for each transition of care or referral. [facility] Allergies No known active allergies Medications Medication Sig Dispensed Refills Start Date End Date Status simvastatin (ZOCOR) 40 MG tablet 05/27/2016 Active Active Problems Problem Noted Date Diagnosed Date Localized edema 01/21/2019 Immunizations Name Administration Dates Next Due TB Skin Test (PPD) 06/24/2016 Social History Tobacco Use Types Packs/Day Years Used Date Smoking Tobacco: Never Smokeless Tobacco: Never Alcohol Use Standard Drinks/Week Comments No 0 (1 standard drink = 0.6 oz pur e alcohol) Sex and Gender Information Value Date Recorded Sex Assigned at Not on file Gender Identity Not on file Sexual Orientation Not on file Last Filed Vital Signs Vital Sign Reading Time Taken Comments Blood Pressure 160/76 02/01/2019 1:47 PM CDT Pulse 92 02/01/2019 1:47 PM CDT Temperature 37.2 ??C (98.9 ??F) 02/01/2019 1:47 PM CD T Respiratory Rate 18 01/19/2019 12:31 PM CDT Oxygen Saturation 96% 02/01/2019 1:47 PM CDT Inhaled Oxygen Concentration - - Weight 72.1 kg (159 lb) 06/24/2016 11:46 AM MANAGER INVESTIGATIONS Height 160 cm (5' 3) 06/24/2016 11:46 AM MANAGER INVESTIGATIONS Body Mass Index 28.17 06/24/2016 11:46 AM MANAGER INVESTIGATIONS Plan of Treatment Health Maintenance Due Date Last Done Comments Colon Cancer Screening Plan Due 1950 Hep C Screening (Preventive Services) 1950 Mammogram 1950 Adult Preventive Visit 1966 DTaP/Tdap/Td (1 - Tdap) 1967 Dexa 2013 Pneumococcal 65+ Yrs (2 - PPSV23 or PCV20) 02/07/2021 02/08/2020 COVID-19 Vaccine (3 - season) 2023 08/11/2020, 07/21/2020 Influenza (#1) 2024 02/08/2020, 11/2019, 05/12/2014, Additional history exists Zoster/Shingles Completed 06/04/2020, 04/05/2020 HepA Aged Out No longer eligi ble based on patient's age to complete this topic HepB Aged Out No longer eligi ble based on patient's age to complete this topic Hib Aged Out No longer eligi ble based on patient's age to complete this topic IPV (Polio) Aged Out No longer eligi ble based on patient's age to complete this topic MCV4 Aged Out No longer eligi ble based on patient's age to complete this topic Care Teams Utilities Manager Relationship Specialty Start Date End Date Needs Pcp, [place] [address] PCP - General 04/29/23
--- OUTSIDE RECORDS SUMMARY | 2023-12-08 06:59 | XMS_ITS | Encounter Summary ---
Author Organization [facility] Address [address], [place] [address] Care Team Providers Care Clamper Name Role Phone Needs Pcp, Assignment Primary Care Provider [phone] Encounter Details Date Type Department Care Team (Latest Contact Info) Description 06/24/2016 Correspondence [facility] Occupational Medicine [facility] [place] [id number] Tate Contreras MD HEARING QUESTIONNAIRE Social History Tobacco Use Types Packs/Day Years Used Date Smoking Tobacco: Never Alcohol Use Standard Drinks/Week Comments No 0 (1 standard drink = 0.6 oz pur e alcohol) Sex and Gender Information Value Date Recorded Sex Assigned at Not on file Gender Identity Not on file Sexual Orientation Not on file documented as of this encounter Plan of Treatment Not on file documented as of this encounter Visit Diagnoses Not on filedocumented in this encounter Care Teams Clamper Relationship Specialty Start Date End Date Needs Pcp, [place] [address] PCP - General 04/29/23 documented as of this encounter
--- OUTSIDE RECORDS SUMMARY | 2023-12-08 06:59 | XMS_ITS | Encounter Summary ---
[facility] Address [address] [address] Care Team Providers Care Sap Bpc Architect Name Role Phone Needs Pcp, Assignment Primary Care Provider [phone] Encounter Details Date Type Department Care Team (Latest Contact Info) Description 06/24/2016 Correspondence [facility] Occupational Medicine [address] [facility] [place] [phone] Tate Contreras MD OCC MED PREPLACEMENT EXAM Social History Tobacco Use Types Packs/Day Years [...] on filedocumented in this encounter Care Teams Sap Bpc Architect Relationship Specialty Start Date [place] [address] PCP - General 04/29/23 documented as of this encounter
--- OUTSIDE RECORDS SUMMARY | 2023-12-08 06:59 | XMS_ITS | Encounter Summary ---
Author Organization [facility] Address [address] [place] [address] Care Team Providers Care Lead Nitrate Processor Name Role Phone Needs Pcp, Assignment Primary Care Provider [phone] Encounter Details Date Type Department Care Team (Late st Contact Info) Description 06/24/2016 Correspondence [facility] Occupational Medicine [address] [facility] [place] [phone] Tate Contreras MD OCC MED PRE-PLACEMENT EXAM Social History Tobacco Use Types Packs/Day [...] on filedocumented in this encounter Care Teams Lead Nitrate Processor Relationship Specialty Start Date End Date [place] [address] PCP - General 04/29/23 documented as of this encounter
[2023-12-08] MEDS: CELECOXIB 200 MG CAPSULE PO (07:15)
[2023-12-08] MEDS: OXYCODONE (CR) 10 MG TAB.ER.12H PO (07:15)
[2023-12-08] MEDS: ACETAMINOPHEN 500 MG TABLET 1000 MG PO ×3 (07:15→19:54)
[2023-12-08] MEDS: LACTATED RINGERS 1000 ML 1,000 ML 100 ML IV (07:20)
[2023-12-08] MEDS: SODIUM CHLORIDE 0.9 % (FLUSH) 10 ML SYRINGE IVF (07:20)
[2023-12-08] MEDS: MIDAZOLAM HCL 1 MG/ML inj IVP (08:40)
[2023-12-08] MEDS: fentaNYL 100 MCG/2 ML inj IVP (08:40)
--- NOTE | 2023-12-08 08:49 | P.NB_ITS ---
Nerve Block Nerve Block Time Seen by Provider: 08:46 Date Seen: 12/08/23 Type of block requested by surgeon for post-operative analgesia: adductor canal Side: right Time out performed: Yes Verification of patient name: Yes Verification of date of : Yes Site marking: site marked Name of person performing procedure: Elias Continuous monitoring Was continuous monitoring of O2 sat, B/P, quality assurance monitor chassis, recorded every 15 minutes?: Yes Procedure Checklist: sterile prep, needles and gloves Ultrasound guided. Images saved: Yes Medications given in 5ml increments after negative aspiration: Ropivicaine %: 0.5 mL: 20 Needle gauge: 20 Decadron (mg): 10 Precedex (mcg): 25 Patient tolerated procedure well: Yes Additional comments: Needle noted adjacent to nerve Block Charges Block Charge (with Pro Fee): Femoral Nerve Use of Ultrasound Machine for Block: Yes- US Guidance/pain block
--- NOTE | 2023-12-08 08:49 | W.ANESCHARGE ---
Anesthesia Charges Start Date/Time Anesthesia Start Date: 12/08/23 Anesthesia Start Time: 09:14 Stop Date/Time Anesthesia Stop Date: 12/08/23 Anesthesia Stop Time: 11:36 Summary Extremes of Age - Over 70 or under 1: MDA
--- NOTE | 2023-12-08 08:50 | P.NB_ITS ---
Nerve Block Nerve Block Time Seen by Provider: 08:46 Date Seen: 12/08/23 Type of block requested by surgeon for post-operative analgesia: geniculars Side: right Time out performed: Yes Verification of patient name: Yes Verification of date of : Yes Site marking: site marked Name of person performing procedure: Elias Continuous monitoring Was continuous monitoring of O2 sat, B/P, veterinary parasitologist, recorded every 15 minutes?: Yes Procedure Checklist: sterile prep, needles and gloves Medications given in 5ml increments after negative aspiration: Ropivicaine %: 0.5 mL: 9 Needle gauge: 25 Patient tolerated procedure well: Yes Block Charges Block Charge (with Pro Fee): Genicular Nerve Block Use of Ultrasound Machine for Block: No
--- NOTE | 2023-12-08 08:54 | SUR.PREOP ---
TIME?OUT:?1740 PT/Magalie MCGHEE RN/Martina PORTILLO MDA?VERIFICATION?OF?SURGICAL?SITE,?PROCEDURE,?AND?CONSENT OBTAINED?PRIOR?TO?INVASIVE?PROCEDURE.
[2023-12-08] MEDS: CEFAZOLIN 2 GM INJ IVP (09:29)
[2023-12-08] MEDS: TRANEXAMIC ACID 100 MG/ML INJ 1000 MG IV (09:32)
--- NOTE | 2023-12-08 10:51 | CRLHL7_ITS ---
For Patients: As a result of the Cures Act, medical imaging exams and procedure reports are released immediately into your electronic medical record. You may view this report before your referring provider. If you have questions, please contact your health care provider. Indication: Postop Technique: Two views right knee Findings/Impression: Hardware from a right total knee arthroplasty is in satisfactory position. Bone alignment is normal. No sign of acute fracture. Postop changes are within normal limits. Dictated by Luis Alfredo Camacho MD @ 12/08/2023 12:42:04 PM (Electronically Signed)
--- NOTE | 2023-12-08 10:53 | PM.ORPRC ---
Procedure Note Date of procedure: 12/08/23 Procedure: PREOPERATIVE DIAGNOSIS: Right knee osteoarthritis POSTOPERATIVE DIAGNOSIS: Right knee osteoarthritis NAME OF OPERATION: Right total knee arthroplasty SURGEON: Collin Monteiro MD SPECIAL PROJECTS MANAGER: PAUL Alvarado ANESTHESIA: Spinal ESTIMATED BLOOD LOSS: 0 mL COMPLICATIONS: None SPECIMENS: None DRAINS: None PREOPERATIVE ANTIBIOTICS: Ancef 2 grams IMPLANTS: 1. J&J Attune #4 posterior stabilized femur 2. #3 fixed-bearing tibia 3. #4 posterior stabilized, 5 mm fixed-bearing polyethylene 4. 35 patella INDICATIONS: The patient is a 73-year-old with a longstanding history of severe, unrelenting right knee pain secondary to end-stage (grade IV) right knee osteoarthritis. Despite appropriate nonoperative management, including activity modification, anti-inflammatories, [id number] pain medication, bracing, physical therapy, and injections they continue to have pain and disability. Operative intervention was offered. The risks, benefits and expected outcomes were discussed in detail. These included but were not limited to: Infection, bleeding, injury to blood vessel or nerve, venous thromboembolism. All questions were answered to their satisfaction. Use of an recruitment and outreach assistant was necessary throughout the case for patient positioning and safety, soft tissue retraction, and closure. PROCEDURE: Spinal anesthesia was administered. The patient was placed supine on the operating table. The recruitment and outreach assistant made sure the patient was positioned appropriately. The lower extremity was prepped and draped in the usual sterile fashion. The limb was exsanguinated with the Leandro bandage. The pneumatic tourniquet was inflated to 300 mmHg. A standard anterior incision was made with the knee in flexion. Subcutaneous dissection was sharply taken through fascial layer #1. Full-thickness medial and lateral flaps were elevated. The recruitment and outreach assistant retracted the soft tissues and protected them throughout the case. A standard subvastus approach was made. The patella was subluxed. The infrapatellar fat pad was debrided. The menisci and cruciate ligaments were sharply d?brided. Marginal osteophytes were d?brided with the rongeur. The drill was used to penetrate the femoral canal. The canal was aspirated and irrigated with pulse lavage. The intramedullary femoral guide was placed for a 5-degree valgus cut, removing 10 mm off the distal femur. The saw was used to make the cut. Whitesides line and the trans epicondylar axis were marked. The femoral sizing guide was pinned onto the distal femur. Three degrees of external rotation nicely parallels the transepicondylar axis. Pins were placed for posterior referencing. The four-in-one cutting guide was pinned onto the distal femur. The anterior, posterior, and chamfer cuts were made. The recruitment and outreach assistant protected the collateral ligaments. The box cutting guide was pinned. The box cuts were made. The boxed trial was placed and was an excellent fit. Drill holes for the lugs were made. Attention was then turned to the proximal tibia. The extramedullary tibial guide was placed for a neutral varus/valgus cut with 5 degrees of posterior slope, removing 2 mm based off the medial tibial surface. The recruitment and outreach assistant protected the collateral ligaments and the neurovascular bundle. The saw was used to make the cut. Trial components were placed. The knee was nicely balanced in both flexion and extension. The trial components were removed. The tray was placed in appropriate rotation, parallel to our tibial cutting pins. It was pinned by the recruitment and outreach assistant and the drill and the punch were used. The tray was removed. The punch was used again. We placed a bone plug in the femoral canal. Attention was then turned to the patella. Kasaan patellar thickness was 20 mm. The lobster claw resection guide was used with the 7.5 mm micah. The saw was used to make the cut. Drill holes were made by the recruitment and outreach assistant. The trial was placed and was an excellent fit. Cancellous surfaces were irrigated with pulse lavage and thoroughly dried by the recruitment and outreach assistant. We cemented the tibial component, then the femoral component. We impacted the 5 mm polyethylene onto the tibial tray. The knee was brought into full extension. We then cemented the patellar component. Excessive cement was removed. The cement was allowed to harden. The knee was taken through a range of motion and was found to be nicely balanced in both flexion and extension. The patella tracks centrally. The recruitment and outreach assistant did a three minute dilute Betadine solution soak. The recruitment and outreach assistant irrigated the wound with 3 liters of normal saline via pulse lavage. The recruitment and outreach assistant reapproximated the extensor mechanism with #1 Vicryl in an interrupted [id number] fashion. The recruitment and outreach assistant then ran the extensor mechanism with a #1 PDO Stratafix. The recruitment and outreach assistant closed the subcutaneous tissues with a 3-0 Stratafix and the skin with a running 3-0 Stratafix in a subcuticular fashion. Glue was used to seal the skin. The recruitment and outreach assistant placed a dry dressing. Sponge and needle counts were correct x2. The patient tolerated the procedure well. There were no apparent complications. They were carefully transferred to the hospital bed and taken to the postanesthesia care unit in satisfactory condition. PLAN: The patient will be mobilized with physical therapy. Aspirin will be used for DVT prophylaxis. They will be discharged to home once medically appropriate.
--- NOTE | 2023-12-08 11:37 | W.ANESCHARGE ---
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
[2023-12-08] MEDS: OXYCODONE 5 MG TABLET PO ×3 (12:41→23:11)
--- NOTE | 2023-12-08 14:59 | PC.NURSE ---
End of Shift: Patient pleasant and cooperative. Patient vitally stable, lungs clear, BS WNL, IV running LR at 75. Patient rates right knee pain at most 3/10, scheduled tylenol given and 5 mg of oxy given once. Patient 1 assist, walker, gb. Patient has been up in chair and has also used the toilet. Patient tolerating regular diet. Patient right knee dresssing C/D/I.
--- NOTE | 2023-12-08 15:12 | PM.IMCN1 ---
Date of Consult Patient: Allison Patient Consult date: 12/08/23 Requesting Physician: Orthopedics Primary Care Provider: To Gibson MD Consult Narrative Reason for consult: hyperlipidemia, h/o breast ccancer Narrative: Mariah Julien is a 73 year old female almost 4 years out from breast cancer with a history of hyperlipidemia who underwent an elective right total knee replacement today by Dr. Monteiro for severe osteoarthritis. Postoperatively she is doing well. Pain is manageable. Her son is here with her in the room. She notes that in the last 3 weeks before surgery she has had worsening lower extremity edema. She has not gone to see her doctor about it because she is afraid that somebody will tell her she should be on a low-salt diet. She tells me that she is 1 of those people who add salt to her food before even tasting it. She mentions that she has a 2-1/2-year-old granddaughter, though, that she would like to see grow up and so she is motivated to take care of herself. She is also still taking meloxicam as an outpatient, but tells me that she was told to take a week off every month for the sake of her kidneys. Review of Systems Status of ROS: Reports: 6 or more systems reviewed and unremarkable except as noted in History and below [facility] Medical History (Updated 12/08/23 @ 18:40 by Catalina Knight MD) CKD stage 3b, GFR 30-44 ml/min ?N18.32 - Chronic kidney disease, stage 3b (ICD-10) Vitamin B12 deficiency anemia ?D51.9 - Vitamin B12 deficiency anemia, unspecified (ICD-10) Overactive bladder ?N32.81 - Overactive bladder (ICD-10) Hyperlipidemia ?E78.5 - Hyperlipidemia, unspecified (ICD-10) Major depressive disorder ?F32.9 - Major depressive disorder, single episode, unspecified (ICD-10) Peripheral neuropathy due to chemotherapy ?G62.0 - Drug-induced polyneuropathy (ICD-10) ?T45.1X5A - Adverse effect of antineoplastic and immunosuppressive drugs, initial encounter (ICD-10) History of pancytopenia ?Z86.2 - Personal history of diseases of the blood and blood-forming organs and certain disorders involving the immune mechanism (ICD-10) Hyperplastic colon polyp ?K63.5 - Polyp of colon (ICD-10) History of adenomatous polyp of colon ?Z86.010 - Personal history of colonic polyps (ICD-10) Breast cancer ?C50.919 - Malignant neoplasm of unspecified site of unspecified female breast (ICD-10) Surgical History (Updated 12/08/23 @ 15:23 by Catalina Knight MD) Status post total right knee replacement ?Z96.651 - Presence of right artificial knee joint (ICD-10) History of breast lump/mass excision ?Z98.890 - Other specified postprocedural states (ICD-10) Status post total left knee replacement (01/15/23) ?Z96.652 - Presence of left artificial knee joint (ICD-10) Status post tonsillectomy ?Z90.89 - Acquired absence of other organs (ICD-10) History of colonoscopy ?Z98.890 - Other specified postprocedural states (ICD-10) History of lumpectomy of right breast (~03/2021) ?Z98.890 - Other specified postprocedural states (ICD-10) H/O hernia repair ?Z98.890 - Other specified postprocedural states (ICD-10) ?Z87.19 - Personal history of other diseases of the digestive system (ICD-10) Family History Sister Breast cancer Father Myocardial infarction Social History Narrative: Lives alone. 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 Never smoked. Was exposed to secondhand smoke from her ex-. Might drink 1 alcoholic beverage per week at the very most. Has 1 son, Rony, who lives in [place], [place], and home she designates as her power of architecture consultant for health should that be required. Has 1 granddaughter from her son, which granddaughter will be 2 years old in March of 2023. Enjoys spending time with her granddaughter. What is your current living situation?: I presently have a place to live In the past 12 months, utilities in danger of being shut off: no In past 12 months, lack of transportation kept you from medical appts, meetings, work, or getting things needed for daily living: no In the past 12 mos, have been you worried that your food would run out before you had money to buy more?: never true In the past 12 mos, the food you bought just didn't last and you didn't have money to buy more?: never true Smoking Status: Never smoker Do you use any of these nicotine containing products: None Second hand tobacco smoke exposure: No How often do you have a drink containing alcohol: monthly or less Alcohol type: hard liquor How many standard drinks containing alcohol do you have on a typical day: 1 or 2 How often do you have six or more drinks on one occasion: Never AUDIT-C Alcohol total score: 1 Non-prescribed substance use: denies use Caffeine: Yes Are you now , , , , never or living with a partner: Social isolation score (0-1 are the most socially isolated patients): 0 How often does anyone, including family, friends and others, physically hurt you: never How often does anyone, including family, friends and others, insult or talk down to you: never How often does anyone, including family, friends and others, threaten you with harm: never How often does anyone, including family, friends and others, scream or curse at you: never service: No Meds Home Medications and Allergies Home Medications ?Medication ?Instructions ?Recorded ?Confirmed ?Type cyanocobalamin (vitamin B-12) 1,000 mcg PO DAILY 12/10/22 12/08/23 History 1,000 mcg tablet escitalopram oxalate 10 mg tablet 10 mg PO DAILY 12/10/22 12/08/23 History oxybutynin chloride 10 mg 10 mg PO HS 12/10/22 12/08/23 History tablet,extended release 24 hr simvastatin 40 mg tablet 40 mg PO HS 12/10/22 12/08/23 History aspirin 81 mg capsule 81 mg PO DAILY 01/15/23 12/08/23 History cholecalciferol (vitamin D3) 10 10 mcg PO DAILY 01/15/23 12/08/23 History mcg (400 unit) capsule multivitamin (Daily Multi-Vitamin 1 tab PO DAILY 01/15/23 12/08/23 History tablet) amoxicillin 500 mg capsule 2,000 mg PO ONCE 12/08/23 12/08/23 History Allergies Allergy/AdvReac Type Severity Reaction Status Date / Time lisinopril AdvReac congestion Verified 12/08/23 07:23 in throat Exam Narrative: Exam Narrative: General: No acute distress. Awake alert oriented x3. HEENT: Normocephalic atraumatic, pupils equally round and reactive to light and accommodation. Oropharynx clear. Mucous membranes are moist. No cervical lymphadenopathy, thyromegaly or carotid bruits. No JVD. Cardiovascular: Regular rate and rhythm. No murmurs, gallops, or rubs. Chest: No increased work of breathing. Clear to auscultation bilaterally. No crackles or wheezes. Abdomen: Bowel sounds present. Soft, nondistended, nontender. No hepatosplenomegaly or masses. Extremities: Right knee bandage is clean, dry, and intact. Bilateral 1-2+ pitting edema, no cyanosis or clubbing. Skin: No jaundice, no pallor, no rashes. Const: Vital Signs, click to edit/add: Vital Signs - 24 hr 12/08/23 07:23 12/08/23 08:42 12/08/23 08:45 Temperature 97.8 F Pulse Rate 85 73 79 Respiratory Rate 16 16 16 Blood Pressure 144/103 H 130/66 130/61 Pulse Oximetry 96 98 95 Oxygen Delivery Me thod Room Air Nasal Cannula Nasal Cannula Oxygen Flow Rate 4 4 12/08/23 11:31 12/08/23 11:35 12/08/23 11:40 Temperature 97.0 F L Pulse Rate 73 72 72 Respiratory Rate 14 14 16 Blood Pressure 101/47 L 98/56 L 100/56 L Pulse Oximetry 95 93 92 Oxygen Delivery Me thod Room Air Room Air Room Air Oxygen Flow Rate 12/08/23 11:45 12/08/23 11:50 12/08/23 11:55 Temperature Pulse Rate 73 71 71 Respiratory Rate 16 16 16 Blood Pressure 105/62 99/61 102/62 Pulse Oximetry 94 93 95 Oxygen Delivery Me thod Room Air Room Air Room Air Oxygen Flow Rate 12/08/23 12:00 12/08/23 12:07 12/08/23 12:15 Temperature 96.9 F L 96.9 F L 96.8 F L Pulse Rate 73 69 69 Respiratory Rate 16 14 12 Blood Pressure 109/64 130/60 107/64 Pulse Oximetry 96 94 97 Oxygen Delivery Dc thod Room Air Room Air Room Air Oxygen Flow Rate 12/08/23 12:30 12/08/23 12:45 12/08/23 13:00 Temperature 97.1 F L 97.1 F L 97.1 F L Pulse Rate 69 77 69 Respiratory Rate 14 14 14 Blood Pressure 127/69 114/101 H 125/81 Pulse Oximetry 96 96 97 Oxygen Delivery Me thod Room Air Room Air Room Air Oxygen Flow Rate 12/08/23 13:30 12/08/23 14:00 Temperature 97.3 F L 97.4 F L Pulse Rate 74 77 Respiratory Rate 12 12 Blood Pressure 103/86 145/93 H Pulse Oximetry 98 95 Oxygen Delivery Me thod Room Air Room Air Oxygen Flow Rate 4 Assessment and Plan Assessment and plan (1) Status post total right knee replacement: Problem comment: 12/08/23 Dr. Monteiro - routine post op cares - BID baby aspirin for VTE prophylaxis Status: Acute (2) Osteoarthritis of right knee: Status: Chronic (3) CKD stage 3b, GFR 30-44 ml/min: Problem comment: - baseline Cr 1.06 - I have recommended to her that she consider stopping NSAIDs with the exception of a baby aspirin for VTE prophylaxis in this postoperative period. Status: Chronic (4) Hyperlipidemia: Problem comment: Continue simvastatin Status: Chronic (5) Vitamin B12 deficiency anemia: Problem comment: 11.5 on 01/02/2023 Continue vitamin B12 supplement Status: Chronic (6) Bilateral lower extremity edema: Problem comment: - Start low salt diet in the hospital - f/u with PCP to discuss if further w/u or treatment needed: ECHO, diuretic, etc. - Recommended daily weights when able to get on and off a scale independently/safely. Status: Acute
[2023-12-08] MEDS: CEFAZOLIN 2 GM in 0.9 % SODIUM CHLORIDE Mini-bag 100 ML IVPB (17:11)
[2023-12-08] MEDS: SIMVASTATIN 40 MG TABLET PO (20:45)
[2023-12-08] MEDS: oxyBUTYnin chloride 5 MG TAB.ER.24 10 MG PO (20:46)
[2023-12-08] MEDS: SENNOSIDES 1 TAB TABLET 2 TAB PO (20:46)
[2023-12-08] MEDS: ASPIRIN 81 MG TABLET EC PO (20:46)
[2023-12-09] MEDS: CEFAZOLIN 2 GM in 0.9 % SODIUM CHLORIDE Mini-bag 100 ML IVPB (01:13)
[2023-12-09] MEDS: ACETAMINOPHEN 500 MG TABLET 1000 MG PO ×2 (02:13→08:07)
[2023-12-09 02:41] VITALS: BP 122/66; PULSE 87; RESP 18; TEMP 36.4; O2SAT 93
[2023-12-09 06:20] LABS: Hematocrit 32.4 % (33.0-51.0); Hemoglobin* 10.7 gm/dL (12.0-16.0); Immature Granulocytes Pct Auto 0.1 %; Lymphocytes Percent Auto 8.2 % (20-44); Mean Corpuscular HGB Conc 33 gm/dL (32-36); Mean Corpuscular Hemoglobin 30 pg (26-34); Mean Corpuscular Volume 90 fL (80-100); Monocytes Percent Auto 5.3 % (0.0-11.0); Neutrophils Percent Auto 86.4 % (42.0-72.0); Platelet Count* 277 K/uL (140-440); RDW Coefficient of Variation % 12.7 % (11.5-15.5); Red Blood Count 3.62 m/uL (4.00-5.20); White Blood Count* 12.76 K/uL (4.50-11.00)
[2023-12-09 06:23] LABS: Slide Review Reflex No
--- NOTE | 2023-12-09 06:32 | PC.NURSE ---
End of shift note [id number]: Pt alert & oriented x 4 and able to make needs known. She is transferring/ambulating with SBA using FWW and gait belt. IV to R forearm patent and SL. VSS. Pt has been afebrile. 08/25 pain to R knee treated with PRN Oxycodone, rest, repositioning and ice. Pt on scheduled Tylenol for pain control. Dressing to anterior R knee C/D/I with CMS of RLE intact. Pt continent of bladder. She has been using call light appropriately. ?
[2023-12-09 06:33] LABS: Potassium* 3.9 mmol/L (3.6-5.1); Sodium* 139 mmol/L (135-149)
[2023-12-09 06:36] LABS: Est. Creatinine Clearance* 36.68; Estimated Glomerular Filt Rate 59 ml/min
[2023-12-09 06:37] LABS: Blood Urea Nitrogen* 31 mg/dL (7-30)
[2023-12-09 06:45] LABS: INR 1.03 (0.91-1.10); Prothrombin Time 14.2 Seconds
--- NOTE | 2023-12-09 07:31 | PM.ORPN ---
Subjective Subjective Time Seen by Provider: 07:31 Date Seen: 12/09/23 Principal diagnosis: Status post right knee replacement Interval history: Mariah is comfortable this morning. She ambulated to the restroom and back to her bed with ease. She states this knee has been going better thus far than her previous left knee replacement. She will discharge to home today. Ortho Exam Narrative Exam Narrative: Alert and oriented x3. Patient is in no acute distress. Converses without labored breathing. Hearing is grossly intact. Ambulates with a walker. Examination of the right lower extremity shows the dressing is intact. No edema, erythema, ecchymosis or sign of infection. No warmth. Bilateral calves are soft and nontender. CMS intact right lower extremity. Const Vital Signs, click to edit/add: Vital Signs - 24 hr 12/08/23 08:42 12/08/23 08:45 12/08/23 11:31 Temperature 97.0 F L Pulse Rate 73 79 73 Pulse Rate [Pulse Oximeter] Respiratory Rate 16 16 14 Blood Pressure 130/66 130/61 101/47 L Blood Pressure [Left Arm] Pulse Oximetry 98 95 95 Oxygen Delivery Method Nasal Cannula Nasal Cannula Room Air Oxygen Flow Rate 4 4 12/08/23 11:35 12/08/23 11:40 12/08/23 11:45 Temperature Pulse Rate 72 72 73 Pulse Rate [Pulse Oximeter] Respiratory Rate 14 16 16 Blood Pressure 98/56 L 100/56 L 105/62 Blood Pressure [Left Arm] Pulse Oximetry 93 92 94 Oxygen Delivery Method Room Air Room Air Room Air Oxygen Flow Rate 12/08/23 11:50 12/08/23 11:55 12/08/23 12:00 Temperature 96.9 F L Pulse Rate 71 71 73 Pulse Rate [Pulse Oximeter] Respiratory Rate 16 16 16 Blood Pressure 99/61 102/62 109/64 Blood Pressure [Left Arm] Pulse Oximetry 93 95 96 Oxygen Delivery Method Room Air Room Air Room Air Oxygen Flow Rate 12/08/23 12:07 12/08/23 12:15 12/08/23 12:30 Temperature 96.9 F L 96.8 F L 97.1 F L Pulse Rate 69 69 69 Pulse Rate [Pulse Oximeter] Respiratory Rate 14 12 14 Blood Pressure 130/60 107/64 127/69 Blood Pressure [Left Arm] Pulse Oximetry 94 97 96 Oxygen Delivery Method Room Air Room Air Room Air Oxygen Flow Rate 12/08/23 12:45 12/08/23 13:00 12/08/23 13:30 Temperature 97.1 F L 97.1 F L 97.3 F L Pulse Rate 77 69 74 Pulse Rate [Pulse Oximeter] Respiratory Rate 14 14 12 Blood Pressure 114/101 H 125/81 103/86 Blood Pressure [Left Arm] Pulse Oximetry 96 97 98 Oxygen Delivery Method Room Air Room Air Room Air Oxygen Flow Rate 4 12/08/23 14:00 12/08/23 15:00 12/08/23 15:00 Temperature 97.4 F L 98 F Pulse Rate 77 82 Pulse Rate [Pulse Oximeter] Respiratory Rate 12 14 14 Blood Pressure 145/93 H 153/82 H Blood Pressure [Left Arm] Pulse Oximetry 95 96 96 Oxygen Delivery Method Room Air Room Air Room Air Oxygen Flow Rate 12/08/23 16:00 12/08/23 17:00 12/08/23 18:00 Temperature Pulse Rate 77 77 85 Pulse Rate [Pulse Oximeter] Respiratory Rate 14 16 16 Blood Pressure 143/82 H 129/86 140/76 H Blood Pressure [Left Arm] Pulse Oximetry 96 96 96 Oxygen Delivery Method Room Air Room Air Room Air Oxygen Flow Rate 12/08/23 19:54 12/08/23 23:00 12/08/23 23:00 Temperature 98.3 F Pulse Rate Pulse Rate [Pulse Oximeter] 91 85 Respiratory Rate 18 18 18 Blood Pressure Blood Pressure [Left Arm] 108/66 Pulse Oximetry 96 94 Oxygen Delivery Method Room Air Room Air Oxygen Flow Rate 12/08/23 23:14 12/09/23 02:41 Temperature 97.1 F L 97.5 F L Pulse Rate Pulse Rate [Pulse Oximeter] 85 87 Respiratory Rate 18 18 Blood Pressure Blood Pressure [Left Arm] 130/65 122/66 Pulse Oximetry 94 93 Oxygen Delivery Method Room Air Room Air Oxygen Flow Rate Assessment and Plan Assessment and plan (1) Status post total right knee replacement: Problem details: 12/08/23 Dr. Monteiro Status: Acute Assessment and Plan: Plan for discharge is today to home if they meet discharge criteria. DVT prophylaxis includes aspirin 81 mg twice daily x1 month, Compression stockings as needed for swelling. Frequent ambulation, every hour throughout the day. Remove dressing in 1 week. Observe wound and phone Orthopedics with any questions or concerns Return to clinic in 1 week for a wound check Return to clinic in 6 weeks with surgeon Minimize narcotic use. Wean off and discontinue soon as possible. Activities as tolerated. No strenuous activity. Outpatient physical therapy as scheduled. Ice and elevate the operative extremity. No restriction on ice.
[2023-12-09] MEDS: SENNOSIDES 1 TAB TABLET 2 TAB PO (08:07)
[2023-12-09] MEDS: MULTIVITAMIN/MINERALS 1 TABLET 1 TAB PO (08:08)
[2023-12-09] MEDS: ASPIRIN 81 MG TABLET EC PO (08:08)
[2023-12-09] MEDS: CYANOCOBALAMIN (VITAMIN B-12) 500 MCG TABLET 1000 MCG PO (08:08)
[2023-12-09] MEDS: ESCITALOPRAM 10 MG TABLET PO (08:08)
[2023-12-09 08:35] VITALS: RESP 20; O2SAT 95
[2023-12-09 08:36] VITALS: BP 102/52; PULSE 85; RESP 20; TEMP 36.7; O2SAT 95
[2023-12-09] MEDS: OXYCODONE 5 MG TABLET PO (09:00)
--- NOTE | 2023-12-09 11:51 | PC.NURSE ---
Discharge - Pt alert, oriented, cooperative. Up with standby assistance and walker/gait belt. Continent of bladder during shift. Tolerating RA, regular diet/fluids. Reported pain in operative knee as 2/10, managed with medication from [facility]. Pedal pulse present, ice pack on site, dressing CDI. IV removed with catheter in place. Education given to pt and family member, understanding verbalized. Pt d/c'd to home with son via wheelchair at approximately 1130.
== END 2023-12-09 11:30 | disposition home or self-care (01) ==
LOC: OR 06:58 → MEDSURG 06:59
PROVIDERS: PCP Family Medicine; Visit Provider Orthopaedic Surgery
PROC: (CPT 27447; principal; 2023-12-08 09:15)
DX: M17.11 Unilateral primary osteoarthritis, right knee (principal); G89.18 Other acute postprocedural pain; I12.9 Hypertensive chronic kidney disease with stage 1 through stage 4 chronic kidney disease, or unspecified chronic kidney disease; N18.32 Chronic kidney disease, stage 3b; R60.0 Localized edema; Z85.3 Personal history of malignant neoplasm of breast; D51.9 Vitamin B12 deficiency anemia, unspecified; E78.5 Hyperlipidemia, unspecified
CPT/HCPCS: 27447; 01402; 36415; 64447; 64454; 73560; 76942; 82565; 84132; 84295; 84520; 85025; 85610; 97110; 97116; 97161; 97165; 97530; 97535; 99100; A9153; A9270; C1776; J0690; J1100; J2250; J2371; J2405; J2704; J3010; J7120